=== PATIENT | female | born 1975 | race Caucasian/White ===

== ENCOUNTER 2016-05-30 19:16 | Emergency (ER) | payer MEDICARE ==
[~2016-05-30] VITALS: Ht 170.1 cm; Wt 96.6 kg
[~2016-05-30 19:16] MED LIST: AMARYL2 MG PO; AMITIZA24 MCG PO; ATARAX,VISTARIL50 MG PO; CARBIDOPA/LEVOD1 TA1 PO; CARVEDILOL25 MG PO; CLONIDINE0.3 MG PO; CYCLOBENZAPRINE10 MG PO; CYCLOBENZAPRINE5 M3 PO; CYMBALTA60 MG PO; DOXYCYCLINE MO100 M1 PO; HYDRALAZINE10 MG PO; HYDROCHLOROTHIA25 M1 PO; INDOMETHACIN25 M1 PO; KEFLEX 500 MG E2 CAP PO; LIPITOR40 MG PO; LISINOPRIL20 MG PO; MAPAP325 MG PO; METHOCARBAMOL750 M1 PO; NEURONTIN300 MG PO; NEURONTIN800 MG PO; OXYCODONE AND A1 TA4 PO; PRILOSEC20 M1 PO; PROPRANOLOL ER80 MG PO; QUETIAPINE FUMA50 M1 PO; TRAZODONE100 MG PO; VENTOLIN H0.09 MG/AC INH; ZOFRAN 4 MG ED2 TAB PO
[2016-05-30 20:24] LABS: BILIRUBIN NEGATIVE (NEGATIVE); BLOOD 3+ (NEGATIVE); CLARITY CLOUDY (CLEAR); COLOR YELLOW (YELLOW); GLUCOSE 1+ (NEGATIVE); KETONE NEGATIVE (NEGATIVE); LEUKO ESTERASE 2+ (NEGATIVE); NITRITE POSITIVE (NEGATIVE); PROTEIN 2+ (NEGATIVE); SPECIFIC GRAVITY 1.025 (1.005-1.030); UROBILINOGEN 0.2 E.U./dl (0.2-1.0)
[2016-05-30 20:33] LABS: BASO # 0.1 10*3/uL (0.0-0.1); BASO % 0.6 % (0.0-1.0); EOS # 0.3 10*3/uL (0.0-0.4); EOS % 2.5 % (1.0-4.0); HEMATOCRIT 47.1 % (37.0-47.0); LYMPH # 2.4 10*3/uL (1.3-4.4); MEAN CELL VOLUME 84.9 fl (81.0-99.0); MEAN CORPUSCULAR HGB 28.8 pg (27.0-31.0); MEAN PLATELET VOLUME 9.8 fl (9.6-12.3); MONO # 0.7 10*3/uL (0.1-1.0); MONO % 5.4 % (3.0-9.0); NEUT # 9.2 10*3/uL (2.3-7.9); NEUT % 72.3 % (47.0-73.0); PLATELET COUNT AUTOMATED 335 10*3/uL (130-400); RED BLOOD COUNT 5.55 10*6/uL (4.10-5.10); RED CELL DISTRI WIDTH 13.7 % (0-14.5); WHITE BLOOD COUNT 12.7 10*3/uL (4.8-10.8)
[2016-05-30 20:34] LABS: BACTERIA 4+; RBC TNTC rbc/hpf (0-2); URINE REFLEX COMMENT YES (NO); WBC TNTC wbc/hpf (0-5)
[2016-05-30 20:49] LABS: ALBUMIN 3.9 gm/dl (3.1-4.5); ALKALINE PHOSPHATASE 118 U/L (45-117); BILIRUBIN, TOTAL 0.5 mg/dl (0.2-1.0); BUN 9 mg/dl (7-24); CARBON DIOXIDE 24 mmol/L (21-32); CHLORIDE 105 mmol/L (98-107); EST GLOM FILT AFRICAN AMERICAN > 60 ml/min; GLUCOSE 236 mg/dL (65-99); SGOT/AST 38 IU/L (3-35); SGPT/ALT 73 U/L (12-78); SODIUM 142 mmol/L (136-145); TOTAL PROTEIN 8.1 gm/dL (6.4-8.2)
[2016-05-30] MEDS ORDERED: PYRIDIUM200 M1 PO (22:33)
[2016-05-30] MEDS ORDERED: KEFLEX500 M1 PO (22:33)
[2016-05-31] MEDS ORDERED: KEFLEX500 M1 PO (12:08)
[2016-05-31] MEDS ORDERED: PYRIDIUM200 M1 PO (12:08)
== END 2016-05-30 23:11 | disposition home or self-care (01) ==
LOC: ED 19:16
PROVIDERS: Emergency Medicine
DX: N39.0 Urinary tract infection, site not specified (principal); R31.9 Hematuria, unspecified; F32.9 Major depressive disorder, single episode, unspecified; I10 Essential (primary) hypertension; M79.7 Fibromyalgia; K21.9 Gastro-esophageal reflux disease without esophagitis; K58.9 Irritable bowel syndrome, unspecified; M06.9 Rheumatoid arthritis, unspecified; E11.65 Type 2 diabetes mellitus with hyperglycemia; F17.200 Nicotine dependence, unspecified, uncomplicated; Z98.890 Other specified postprocedural states; Z90.710 Acquired absence of both cervix and uterus; Z96.641 Presence of right artificial hip joint; Z90.49 Acquired absence of other specified parts of digestive tract; Z79.899 Other long term (current) drug therapy; Z88.5 Allergy status to narcotic agent; Z87.442 Personal history of urinary calculi

== ENCOUNTER → 2016-10-15 | Outpatient (CLI) | payer MEDICARE, MEDICAID ==
[~2016-10-15] MED LIST changes: +KEFLEX500 M1 PO; +PYRIDIUM200 M1 PO
--- NOTE | ~2016-10-15 | WRIGHTHP ---
[place], [place] PATIENT HISTORY AND PHYSICAL EXAM NAME: JULIAN JACOBSON [facility] #: [id number] UNIT #: [id number] ROOM: DOCTOR: SHADY CarpenterMARTINA BIRTHDATE: [birth year] DOS: 10/15/2016 CHIEF COMPLAINT: Open wound of the left hand and left forearm. HISTORY OF PRESENT ILLNESS: This is a 40-year-old female with a history of type 2 diabetes, which is uncontrolled, according to medical records and per patient report, who apparently was admitted to [facility] for an abscess and cellulitis of the left hand as well as the forearm. Medical charts indicate that she had suffered a dog bite from a puppy. However, the patient reports that she was not bitten by the dog and that she was playing with the dog and the dog may have scratched her a little bit and then she subsequently developed an abscess of the left hand as well as the left forearm. In any case, the patient was admitted for this, and she was seen by Surgery and underwent operative incision and drainage on 10/02/2016. She also underwent incision and drainage on the left forearm on the ulnar side. She was sent home, discharged eventually, after treatment. It looks like she grew Staph from the cultures and was prescribed Keflex. She has been having home health coming to doing the dressing changes, looks like they have been using Xeroform, but has not really been healing as she would like it to. Home health has referred her to our [facility]ound [facility]. The patient wishes to not follow up with the surgeon who had seen her in the hospital. PAST MEDICAL HISTORY: She has had multiple abscesses noted and according to the medical record, the surgeon who had drained the abscess this past September had seen her and had done multiple drainages before one back in 03/2015 for an abscess of the left hand, one in 04/10/2016, she had another I and D for deep abscess of the left hand. She had also an abscess drained of the right hand as well. The patient reports that she has had a history of multiple abscesses in the past. She reports that she got an abscess of her ear at one point after she got the ear pierced and had a large severe abscess of the ear that was quite extensive requiring surgery. She has had multiple abscesses of her legs. She really reports that they do not appear to be provoked by anything according to the patient. 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 Her diabetes is uncontrolled. She says she was being given insulin in the hospital, but now it is just on oral agents. She has a history of hypertension, degenerative joint disease, osteoarthritis of multiple sites, bronchial asthma, GERD, recurrent skin infections and cellulitis, quite severe. She says she has always been given vancomycin when she was admitted, but at this time, she was not. She also has chronic abdominal discomfort and irritable bowel syndrome according to the patient. PAST SURGICAL HISTORY: She is status post appendectomy, cholecystectomy. FAMILY HISTORY: Significant for cardiac disease in the father. Mother is healthy, brother is healthy, sister is healthy. SOCIAL HISTORY: She smokes 2 packs per day for many years, currently, no alcohol or drug use presently. She drinks 3 cups of coffee a day. There is a history of a TIA as well in the past. [place], [place] PATIENT HISTORY AND PHYSICAL EXAM [facility]: [id number] UNIT #: [id number] ROOM: DOCTOR: MARTINA CARUSO M.D. BIRTHDATE: [birth year] PAST MEDICAL HISTORY: Anxiety, insomnia, history of bronchitis. She is status post right hip replacement as well and hysterectomy. ALLERGIES: MORPHINE. MEDICATIONS: Albuterol 2 puffs 4 times a day, gabapentin 300 mg capsules 3 capsules at bedtime, Glimepiride 2 mg b.i.d., atorvastatin 40 at bedtime, lisinopril 20 p.o. daily, clonidine patch 0.2 mg q.24 hours, weekly, twice a day, hydralazine 50 mg 3 times a day, Amitiza 24 mcg capsules twice a day, furosemide 40 mg daily, ibuprofen 800 q.6 hours as needed, omeprazole 20 mg daily, zolpidem 10 mg p.o. at bedtime, duloxetine 60 mg twice a day, cyclobenzaprine 10 mg at bedtime and cyclobenzaprine 5 mg b.i.d., cephalexin 500 four times a day. She has just a few pills left. REVIEW OF SYSTEMS: Currently, no fevers or chills. She still has pain and discomfort. There is drainage and still some redness. Her neighbor has left her and says that she thinks that the area in the forearm looks more red than it did before. She denies any breathing trouble, chest pains, or GI complaints presently, but does state she has chronic abdominal discomfort from irritable bowel syndrome. When I asked specifically about her sugars, it has been running very high in the 200-250 range, and she says it really has not gotten any better and has been like that for some time now. She reports that she has never really been worked up for any type of immunodeficiency that she is aware of. PHYSICAL EXAMINATION: VITAL SIGNS: He is afebrile, pulse is 64, respirations 18, blood pressure is 130/82, temperature is actually 98.4. GENERAL: This is a young female, slightly obese, in no acute distress, who is pleasant and cooperative. HEENT: Extraocular movements are intact. Sclerae nonicteric. I do not appreciate any JVD. LUNGS: She had rhonchi that cleared with cough, otherwise has good inspiratory and expiratory phase. CARDIOVASCULAR: S1, S2, regular rate and rhythm. I do not appreciate a murmur. ABDOMEN: Obese and soft. She does complain of some mild discomfort upon palpation and she says this is chronic and nothing unusual. EXTREMITIES: She has trace edema bilaterally and there is no calf tenderness. She has two open area noted on the left hand dorsum aspect right between the webspace of the thumb and first pointer finger. It is measuring 3.5 x 1 x 0.5. There is a moderate fibrin slough still present. The periwound is indurated and mildly erythematous and fractionating still operator to touch. The forearm wound is measuring 1.9 x 1 x 0.3 in depth. There is surrounding erythema, warmth and tenderness still present and it is indurated as well. A selective debridement was done of both of these wounds to remove some of the devitalized tissue. Only a small amount of fibrin slough was removed from both of these wounds with a curette. Cetacaine spray was used for topical anesthesia. Post-debridement measurements are unchanged. The patient did not tolerate debridement very well due to pain. A swab culture was obtained of the open wound of the left hand. [place], [place] PATIENT HISTORY AND PHYSICAL EXAM NAME: [facility] [id number] UNIT #: [id number] ROOM: DOCTOR: SHADY Carpenter,MARTINA BIRTHDATE: [birth year] ASSESSMENT AND PLAN: Large open wounds of the left hand and left forearm secondary to an abscess formation. We will go ahead and use TheraHoney to help with debridement and Aquacel Ag rope to the wound base. I would like to have her change it every day for now. I would like to add Bactrim to the regimen one tablet twice a day. The patient says she has been on Bactrim before and has never had a problem with that. She has uncontrolled diabetes. She does not know what her hemoglobin A1c is. I will go ahead and order this, and I strongly urged the patient to follow up with her primary care physician. She definitely needs better management of her diabetes. The wound is quite deep and on the left hand areas, I would like to go ahead and check an x-ray to see if there has been any bony involvement. In addition, the patient does not appear septic in any way. She does complain of feeling tired. I did inform if she spikes a fever or the wound worsens, she is to go to the Emergency Room. There is some indication on medical records that the patient has had a history of IV drug abuse and that some of these previous abscesses may have been secondary to IV drugs. However, the patient does not report this at this time and she has had multiple abscesses and the etiology is unclear. She does not recall a history of MRSA that she is aware of. It is my recommendation that she follow up with her primary care physician to be evaluated for possible immunodeficiency or an Infectious Disease specialist at some point may be also helpful for her. We will discuss this again at her next visit. Followup is in one week. MARTINA CARUSO MD CM:HISPHYS:PATIENT HISTORY AND PHYSICAL EXAMINATION [id number] MARTINA CARUSO M.D. 10/15/16 1344 interface
== END ==
LOC: WOUNDCARE 03:05
DX: L02.512 Cutaneous abscess of left hand (principal); L02.414 Cutaneous abscess of left upper limb; E11.9 Type 2 diabetes mellitus without complications; I10 Essential (primary) hypertension; M19.90 Unspecified osteoarthritis, unspecified site; K21.9 Gastro-esophageal reflux disease without esophagitis; J45.909 Unspecified asthma, uncomplicated; F17.200 Nicotine dependence, unspecified, uncomplicated; F41.9 Anxiety disorder, unspecified; Z90.710 Acquired absence of both cervix and uterus; Z86.73 Personal history of transient ischemic attack (TIA), and cerebral infarction without residual deficits

== ENCOUNTER → 2016-10-27 | Outpatient (CLI) | payer MEDICARE, MEDICAID ==
--- NOTE | ~2016-10-27 | PR ---
[place], [place] PROGRESS NOTE NAME: JULIAN JACOBSON [facility] #: [id number] UNIT #: [id number] ROOM: DOCTOR: SHADY CarpenterMARTINA BIRTHDATE: [birth year] DOS: 10/27/2016 CHIEF COMPLAINT: Followup of open wounds of the left hand. HISTORY OF PRESENT ILLNESS: This is a 40-year-old female with a history of type 2 diabetes that is uncontrolled, who has been seen in the wound clinic on one occasion. She missed her last week's appointment. She had an abscesses drained from her left forearm and left hand that left her with open deep wounds. The etiology of these abscesses are unclear. In any case, the patient was recommended to use Aquacel Ag and TheraHoney to the wounds. She says that overall it definitely the wounds are getting better, especially one on the left forearm. She still has some inflammation around the left hand ulcer that present, she never did get the x-ray or a blood work that we had recommended. Also, there are new areas of what appeared to be developing abscess was starting up again on the left forearm and more proximal to the initial wound as well as the third finger on the right hand, there developing. She does not have any fevers or chills. She just completed the Bactrim that was given to her last week. She does have an appointment with her primary care physician later this month. OBJECTIVE: VITAL SIGNS: Her vitals are stable. Temperature is 98.6, pulse is 86, respirations 18, blood pressure is 132/80. The wound on the left hand dorsum is measuring smaller at 3 x 0.5 x 0.3. There is still some marked induration around the periwound and some erythema as well and tenderness to touch, but overall definitely looks smaller and shallower than before. There is still some fibrin slough and devitalized tissue in the base of the wound. The second wound is definitely measuring smaller at 1.2 x 0.5 x 0.2 and there is just some devitalized tissue around the periwound. It is not really tender to touch and it looks like it has granulated quite a bit. A debridement was done of both of these wounds. Initially, the hand wound was debrided. There is subcutaneous tissue with curette. There was minimal bleeding. The patient tolerated the debridement well. Cetacaine spray was used for topical anesthesia. Post-debridement depth is down to 0.4, otherwise the margins have unchanged. For the forearm wound, selective debridement was done only. The tissue removed was just devitalized tissue only. There was no bleeding. The patient tolerated the debridement well. Post-debridement measurements are unchanged. Curette was utilized. She has two other areas are indurated and erythematous on the forearm. They are not fluctuant at all. There are very firm and slightly tender. She has another area on the right finger that also noted to be starting that is also erythematous and not acutely fluctuant and not acutely tender, but is swollen and erythematous. She says she has had these before that sometimes they just go with antibiotics and sometimes they develop into full blown abscess. ASSESSMENT AND PLAN: Status post incision and drainage of 2 wounds. She still has a fairly large wound on the left hand. We will go ahead and get the x-ray done and continue with the current management. It is still indurated and there is evidence of newly developing areas of concern. I would go ahead and add Levaquin 500 daily for now until seen again in a week for now. She will have an [place], [place] PROGRESS NOTE [facility]: [id number] UNIT #: [id number] ROOM: DOCTOR: MARTINA CARUSO M.D. BIRTHDATE: [birth year] appointment with her primary care physician. I did directly ask if she has injected recently into these areas and she denies it adamantly; she states she has not injected for the past 6 months. We will go ahead and refer her to Dr. Esparza for possible incision and drainage of these areas. At this point, they do not appear need acute drainage, however. We did advise to go ahead and use warm compresses and if they worsen she is to go to the ER. Also it may be beneficial to consider referral to an plastic parts fabricator trimmer and/or an Infectious Disease specialist as well. Follow up in the wound clinic in 1 week. MARTINA CARUSO MD CM:PNTRANS [id number] MARTINA CARUSO M.D. 10/30/16 0944 interface
== END | disposition home or self-care (01) ==
LOC: WOUNDCARE 04:50
DX: E11.622 Type 2 diabetes mellitus with other skin ulcer (principal); L98.491 Non-pressure chronic ulcer of skin of other sites limited to breakdown of skin; L02.414 Cutaneous abscess of left upper limb

== ENCOUNTER → 2016-11-17 | Outpatient (CLI) | payer MEDICARE, MEDICAID ==
--- NOTE | ~2016-11-17 | PR ---
[place], [place] PROGRESS NOTE NAME: JULIAN JACOBSON [facility] #: [id number] UNIT #: [id number] ROOM: DOCTOR: SHADY CarpenterMARTINA BIRTHDATE: [birth year] DOS: 11/17/2016 CHIEF COMPLAINT: Followup of open wounds of the left hand. HPI: This is a 41-year-old female with a history of uncontrolled type 2 diabetes, who has been coming to the Wound Clinic for 4 weeks now. She had a very large abscess of her left hand and left forearm that were drained surgically and she has been coming to the Wound Clinic for further wound care. She has missed 2 weeks of appointments in a row most recently and last time we had seen her, we had recommended to get an x-ray of the hand; however, that I do not believe she has had that done either. She comes in today without any specific complaints. She really does not have any pain right now. The wounds are definitely filling in for the most part quite nicely. She is still using TheraHoney and Aquacel Ag ribbon. She says her sugars are still quite high running in the 300 hundreds regularly. She has no other specific complaints. OBJECTIVE: VITAL SIGNS: Stable. Temperature is 98.1, pulse is 80, respirations 18, blood pressure is 126/60. SKIN: The wound is measuring 2 x 0.5 x 0.2 in depth. This is on the dorsum of the left hand and there is some fibrin slough still present in the base of the wound. The wound on the forearm is measuring 1.1 x 0.4 x 0.1 and it looks to be healing quite nicely. Due to the fibrin slough present in the hand wound, a debridement was done. Fibrin slough was removed with a curette, forceps, and scissors. The patient tolerated the procedure well. There was minimal bleeding. Cetacaine spray was used for topical anesthesia. Post-debridement measurements are 2 x 0.5 x 0.3. ASSESSMENT AND PLAN: Healing abscess of the left hand. We will continue with TheraHoney and the Aquacel Ag now for the forearm area. It looks to be almost healed. We will just have her use Aquaphor for this area. Followup is in one week. I did explain how important it is to get her diabetes at her control and she says her PCP is out of town until December, but I did advise her to make sure she checks her sugars and reports to her PCP's office, her readings. [place], [place] PROGRESS NOTE NAME: KAVONJULIAN Pushpa UNIT #: [id number] ROOM: DOCTOR: MARTINA CARUSO M.D. BIRTHDATE: [birth year] MARTINA CARUSO MD CM:NEGRA [id number] 2 MARTINA CARUSO M.D. 11/18/16512 interface
== END | disposition home or self-care (01) ==
LOC: WOUNDCARE 03:14
DX: L02.512 Cutaneous abscess of left hand (principal); E11.9 Type 2 diabetes mellitus without complications

== ENCOUNTER 2016-12-15 21:03 | Inpatient (IN) | payer MEDICARE, MEDICAID ==
[~2016-12-15] VITALS: Ht 170.2 cm; Wt 104.0 kg
[2016-12-15 21:22] VITALS: BP 141/98
[2016-12-15 22:08] LABS: BILIRUBIN NEGATIVE (NEGATIVE); BLOOD 2+ (NEGATIVE); CLARITY CLEAR (CLEAR); COLOR YELLOW (YELLOW); GLUCOSE 3+ (NEGATIVE); KETONE TRACE (NEGATIVE); LEUKO ESTERASE NEGATIVE (NEGATIVE); NITRITE NEGATIVE (NEGATIVE); UROBILINOGEN 0.2 E.U./dl (0.2-1.0)
[2016-12-15 22:17] LABS: RBC 31-40 rbc/hpf (0-2)
[2016-12-15 22:18] LABS: URINE AMPHETAMINES < 1000 (1000ng/ml); URINE BARBITURATES < 200 (200ng/ml); URINE BENZODIAZEPINES < 200 (200ng/ml); URINE CANNABINOIDS (THC) < 50 (50ng/ml); URINE COCAINE < 300 (300ng/ml); URINE METHADONE < 300 (300ng/ml); URINE OPIATES > 300 (300ng/ml)
[2016-12-15 22:19] LABS: BASO % 0.3 % (0.0-1.0); EOS # 0.2 10*3/uL (0.0-0.4); EOS % 1.5 % (1.0-4.0); HEMATOCRIT 40.7 % (37.0-47.0); HEMOGLOBIN 13.3 g/dl (12.0-16.0); LYMPH # 2.1 10*3/uL (1.3-4.4); LYMPH % 17.9 % (27.0-41.0); MEAN CELL VOLUME 82.2 fl (81.0-99.0); MEAN CORPUSCULAR HGB 26.9 pg (27.0-31.0); MEAN CORPUSCULAR HGB CONC 32.7 g/dl (33.0-37.0); MEAN PLATELET VOLUME 9.9 fl (9.6-12.3); MONO # 0.6 10*3/uL (0.1-1.0); NEUT # 8.9 10*3/uL (2.3-7.9); PLATELET COUNT AUTOMATED 249 10*3/uL (130-400); RED BLOOD COUNT 4.95 10*6/uL (4.10-5.10); RED CELL DISTRI WIDTH 14.5 % (0-14.5); WHITE BLOOD COUNT 11.9 10*3/uL (4.8-10.8)
[2016-12-15 22:22] LABS: URINE PHENCYCLIDINE < 25 (25ng/ml)
--- NOTE | 2016-12-15 22:25 | NUR ---
DR MOREIRA MADE AWARE OF CRITICAL LAB VALUE
[2016-12-15 22:36] LABS: ALBUMIN 3.3 gm/dl (3.1-4.5); ALKALINE PHOSPHATASE 160 U/L (45-117); BUN 9 mg/dl (7-24); CHLORIDE 98 mmol/L (98-107); CREATININE 0.81 mg/dL (0.55-1.02); POTASSIUM 3.6 mmol/L (3.5-5.1); SGOT/AST 28 IU/L (3-35); SGPT/ALT 64 U/L (12-78); SODIUM 135 mmol/L (136-145); TOTAL PROTEIN 8.2 gm/dL (6.4-8.2)
[2016-12-15 22:49] LABS: TROPONIN I < 0.015 ng/ml (<0.045)
--- NOTE | 2016-12-15 23:50 | NUR ---
Time: 2349 A 41 year old F admitted to under services of FADUMO JOHNSON DO Pt. arrived via stretcher from ER. Chief complaint: CELLULITIS. SURESH TAYLOR
[2016-12-16] VITALS: BP 141/79
--- NOTE | 2016-12-16 00:45 | NUR ---
SPOKE WITH DR. LEMA ABOUT PT. MED. REC. HE WILL ADRESS THIS IN THE AM.
--- NOTE | 2016-12-16 00:59 | NUR ---
PRN TORADOL GIVEN TO PT. FOR PAIN IN THE RIGHT HAND, PT. RATES PAIN A 10/10. WILL MONITOR FOR EFFECTIVENESS.
--- NOTE | 2016-12-16 01:30 | NUR ---
PRN TORODOL NOT EFFECTIVE PER PT. STILL RATING RT. HAND PAIN A 10/10.
--- NOTE | 2016-12-16 02:58 | NUR ---
CONTACTED AT THIS TIME FOR PAIN MEDICATION, SEE NEW ORDERS.
--- NOTE | 2016-12-16 03:23 | NUR ---
PRN DILAUDID GIVEN PER ORDERS FOR PAIN IN PT.'S RT. HAND RATING A 10/10. WILL CONTINUE TO MONITOR.
--- NOTE | 2016-12-16 03:24 | NUR ---
PRN RESTORIL GIVEN PER PT. REQUEST TO TRY AND GET SOME SLEEP. WILL MONITOR EFFECTS.
--- NOTE | 2016-12-16 03:43 | NUR ---
PRN DILAUDID EFFECTIVE, PT. RESTIN GCOMFORTABLY RESPIRATIONS ARE EASY AND REGULAR WITH NO DISTRESS NOTED. WILL CONTINUE TO MONITOR.
--- NOTE | 2016-12-16 03:54 | NUR ---
PRN RESTORIL NOT EFFECTIVE, PT. STILL AWAKE C/O HAND PAIN.
--- NOTE | 2016-12-16 05:43 | NUR ---
PRN TYLENOL GIVEN TO PT. FOR PAIN IN RT. HAND, WILL MONITOR EFFECT.
--- NOTE | 2016-12-16 06:10 | NUR ---
PRN TYLENOL NOT EFFECTIVE PER PT.
--- NOTE | 2016-12-16 06:30 | NUR ---
DR. JASON CONTACTED FOR CONSULT, INFORMED THAT DR. HARDWICK WAS HOME HEALTH CARE COORDINATOR. WILL CONTACT DR. HARDWICK
--- NOTE | 2016-12-16 07:00 | NUR ---
DR. HARDWICK CONTACTED FOR CONSULT FOR PT. HAVING CELLULITIS IN RT. HAND, DR. HARDWICK INFORMED ME THAT HE WAS CONTACTED BY ER LAST NIGHT AND WILL BE IN TO SEE PT. THIS AM.
--- NOTE | 2016-12-16 07:04 | NUR ---
PRN TORADOL GIVEN AT THIS TIME FOR PAIN IN PT'S RT. HAND. WILL MONITOR EFFECTIVENESS.
[2016-12-16 07:22] LABS: BASO % 0.3 % (0.0-1.0); EOS # 0.2 10*3/uL (0.0-0.4); EOS % 2.1 % (1.0-4.0); HEMATOCRIT 40.3 % (37.0-47.0); HEMOGLOBIN 13.2 g/dl (12.0-16.0); LYMPH # 2.3 10*3/uL (1.3-4.4); LYMPH % 19.7 % (27.0-41.0); MEAN CORPUSCULAR HGB 27.5 pg (27.0-31.0); MEAN CORPUSCULAR HGB CONC 32.8 g/dl (33.0-37.0); MEAN PLATELET VOLUME 10.1 fl (9.6-12.3); MONO # 0.7 10*3/uL (0.1-1.0); NEUT # 8.3 10*3/uL (2.3-7.9); NEUT % 71.6 % (47.0-73.0); PLATELET COUNT AUTOMATED 248 10*3/uL (130-400); RED CELL DISTRI WIDTH 14.6 % (0-14.5); WHITE BLOOD COUNT 11.5 10*3/uL (4.8-10.8)
[2016-12-16 07:50] LABS: BUN 10 mg/dl (7-24); CHLORIDE 102 mmol/L (98-107); CHOLESTEROL 131 mg/dL (<200); CREATININE 0.79 mg/dL (0.55-1.02); HDL CHOLESTEROL 30 mg/dl (40-60); LDL CHOLESTEROL 61 mg/dL (9-159); POTASSIUM 3.8 mmol/L (3.5-5.1); SODIUM 137 mmol/L (136-145); TRIGLYCERIDES 202 mg/dl (<150); VLDL CHOLESTEROL 40 mg/dL (6-40)
[2016-12-16 07:57] LABS: THYROID STIM HORMONE (HS) 0.926 uIU/ml (0.358-4.75)
[2016-12-16 08:00] VITALS: BP 115/53
[2016-12-16 08:00] LABS: ACT PARTIAL THROMBO TIME 24.7 SECONDS (20.8-31.5)
--- NOTE | 2016-12-16 08:00 | NUR ---
PATIENT SITTING SIDE OF BED CRYING. WANTING SOMETHING FOR LPAIN. PATIENT STATES SHE HAS NOT SLEPT IN 2 DAYS AND CANNOT GET COMFORTABLE. EDUCATED JUST MEDICATED AND NOT TIME FOR TORODOL YET.
--- NOTE | 2016-12-16 08:30 | NUR ---
Dough Molder in to talk to patient. Patient states lives at HOME with A ROOMMATE. There are 10 steps in the home. Physician: DR DEL ROSARIO IN [place] Pharmacy: [facility] IN [place] Home health services: Patient's level of ADLs: INDEPENDENT Patient has working utilities: YES DME: NONE Follow-up physician's appointment after d/c: WILL BE MADE PRIOR TO DC Does patient want to access PORTAL?: Discharge plan HOME. PRIYANK BRANNON
--- NOTE | 2016-12-16 09:20 | NUR ---
RESPIRATORY SAW PATIENTSWAYING ON SIDE OF BED AFTER EXITING BATHROOM. POX CHECK WAS 90-91% RA, PLACED ON 2L NC POX 96%. PATIENT JUST STATES SHE WAS SWAYING BECAUSE SHE IS EXHAUSTED AND NOT SLEEPING. ASSISTED PATIENT TO LIE DOWN.
[2016-12-16 09:28] LABS: VITAMIN D, 25-HYDROXY 8.1 ng/mL (30-100)
[2016-12-16] MEDS ORDERED: AMITIZA24 MCG PO (10:24)
[2016-12-16] MEDS ORDERED: MAGNESIUM OXID400 MG PO (10:25)
[2016-12-16] MEDS ORDERED: LASIX40 MG PO (10:26)
--- NOTE | 2016-12-16 11:04 | NUR ---
MEDICATED WITH ONE TIME DILAUDID PER ORDER.
[2016-12-16 12:00] VITALS: BP 152/113
--- NOTE | 2016-12-16 12:15 | NUR ---
MEDICATED WITH PRN PERCOCET PER ORDER, DILAUDID HELPED A LITTLE.
--- NOTE | 2016-12-16 13:17 | NUR ---
PATIENT MOANING/CRYING KEEPS ASKING FOR RN. PATIENT REFUSING ICE PACK OR ELEVATION STATES IT MAKES IT WORSE. PERCOCET DID NOT HELP.
--- NOTE | 2016-12-16 14:00 | NUR ---
TO MRI AND BACK BECAUSE PATIENT UNABLE TO HOLD STILL AND IN TOO MUCH PAIN.
--- NOTE | 2016-12-16 14:28 | NUR ---
MEDICATED WITH TORODOL AND DILAUDID PER ORDERS.
--- NOTE | 2016-12-16 14:40 | NUR ---
BACK TO MRI. PATIENT HAS REPAEATEDLY ASKED FOR PAIN MED DR. LUNSFORD CALLED MULTIPLE TIMES. PAIN MEDS HAVE BEEN GIVEN.
[2016-12-16 16:00] VITALS: BP 157/94
[2016-12-16] MEDS ORDERED: HYDRALAZINE HYD50 MG PO (16:44)
--- NOTE | 2016-12-16 17:28 | NUR ---
PATIENT HAS HAD MRI AND IS IN ROOM NOW VERBALLY ABUSING STAFF STATES I ACT LIKE THE PAIN MED IS COMING OUT OF MY FUCKING POCKET." EDUCATED CANNOT GIVE WHAT IS NOT ORDERED. SCREAMING CALL THE DOCTOR. DR. HILL NOTIFIED.
--- NOTE | 2016-12-16 17:47 | NUR ---
MEDICATED WITH PRN TYLENOL PER ORDER. PATIENT HAS NOT STOPPED CRYING ALL DAY.
--- NOTE | 2016-12-16 18:10 | NUR ---
MEDICATED WITH PRN PERCOCET PER ORDER AND REQUEST FOR R HAND PAIN 10 OUT OF 10 PAIN.
--- NOTE | 2016-12-16 18:35 | NUR ---
CRITICAL MRI CALLED TO THIS RN, DR. RODRIGUEZ AWARE WILL CALL DR. HARDWICK.
--- NOTE | 2016-12-16 18:39 | NUR ---
DR. HARDWICK AWARE OF RESULTS MRI, TALKING PLAN OF CARE OVER WITH DR. RODRIGUEZ.
--- NOTE | 2016-12-16 18:44 | NUR ---
PATIENT TO BE TRANSFERED TO ANOTHER FACILITY. DR. HILL AWARE OF ANOTHER REQUEST FOR PAIN MEDICATION.
--- NOTE | 2016-12-16 18:53 | NUR ---
DR. RODRIGUEZ IN ROOM, DR. HARDWICK CALLED IN TO START TRANSFER.
--- NOTE | 2016-12-16 19:07 | NUR ---
MEDICATED WIT NDILAUDID PER ORDER.
[2016-12-16] MEDS ORDERED: Vitamin D PO (19:17)
[2016-12-16 20:00] VITALS: BP 146/82
--- NOTE | 2016-12-16 23:25 | NUR ---
PT LEFT VIA LIFETEAM AT THIS TIME. HEART MONITOR REMOVED
--- NOTE | 2016-12-16 23:35 | NUR ---
REPORT GIVEN AT THIS TIME TO NURSE AT [facility]
== END 2016-12-16 23:25 | disposition short-term general hospital (02) | DRG 872 ==
LOC: ED 21:03 → EDHOLD 23:03 → 4E 23:03
PROVIDERS: Emergency Medicine Emergency Medical Services; Internal Medicine; ADMIT Internal Medicine
DX: A41.9 Sepsis, unspecified organism (principal); E11.42 Type 2 diabetes mellitus with diabetic polyneuropathy; M60.000 Infective myositis, unspecified right arm; E11.65 Type 2 diabetes mellitus with hyperglycemia; L02.91 Cutaneous abscess, unspecified; L03.113 Cellulitis of right upper limb; I10 Essential (primary) hypertension; R65.20 Severe sepsis without septic shock; F11.10 Opioid abuse, uncomplicated; F17.210 Nicotine dependence, cigarettes, uncomplicated; E55.9 Vitamin D deficiency, unspecified; E78.1 Pure hyperglyceridemia; G56.00 Carpal tunnel syndrome, unspecified upper limb; M65.9 Synovitis and tenosynovitis, unspecified; Z88.6 Allergy status to analgesic agent; Z79.899 Other long term (current) drug therapy; F32.9 Major depressive disorder, single episode, unspecified; K21.9 Gastro-esophageal reflux disease without esophagitis; Z86.19 Personal history of other infectious and parasitic diseases; Z87.440 Personal history of urinary (tract) infections; Z90.49 Acquired absence of other specified parts of digestive tract; Z90.710 Acquired absence of both cervix and uterus; Z96.641 Presence of right artificial hip joint; Z83.3 Family history of diabetes mellitus; Z84.89 Family history of other specified conditions

== ENCOUNTER 2017-06-18 23:12 | Emergency (ER) | payer MEDICARE, MEDICAID ==
[~2017-06-18] VITALS: Ht 170.1 cm; Wt 99.8 kg
[~2017-06-18 23:12] MED LIST changes: +HYDRALAZINE HYD50 MG PO; +LASIX40 MG PO; +MAGNESIUM OXID400 MG PO; +Vitamin D PO
[2017-06-18] MEDS ORDERED: SEPTDS PO (23:46)
== END 2017-06-18 23:52 | disposition home or self-care (01) ==
LOC: ED 23:12
DX: L03.114 Cellulitis of left upper limb (principal); K21.9 Gastro-esophageal reflux disease without esophagitis; E11.65 Type 2 diabetes mellitus with hyperglycemia; I10 Essential (primary) hypertension; Z88.5 Allergy status to narcotic agent; Z90.710 Acquired absence of both cervix and uterus; Z90.49 Acquired absence of other specified parts of digestive tract

== ENCOUNTER 2020-07-03 05:09 | Emergency (ER) | payer OTHER, MEDICAID ==
[~2020-07-03] VITALS: Ht 170.1 cm; Wt 96.6 kg
[~2020-07-03 05:09] MED LIST changes: +AMLODIPINE BESYL5 MG PO; +BUSPAR15 MG PO; +DICYCLOMINE HCL20 MG PO; +JANUMET XR 50-1 EAC1 PO; -LISINOPRIL20 MG PO; +LISINOPRIL40 MG PO; +NATURE'S BLEND F1 MG PO; +NATURE'S BLEND100 M2 PO; +ROPINIROLE HYD0.5 MG PO; +SEPTDS PO; +SEROQUEL XR150 MG PO; +TRESIBA100 UNIT/1 SQ
== END 2020-07-03 05:34 | disposition left against medical advice (07) ==
LOC: ED 05:09
DX: F11.23 Opioid dependence with withdrawal (principal); G44.89 Other headache syndrome; R11.0 Nausea; Z88.5 Allergy status to narcotic agent; Z79.899 Other long term (current) drug therapy; Z79.4 Long term (current) use of insulin; Z98.890 Other specified postprocedural states; Z90.711 Acquired absence of uterus with remaining cervical stump; Z90.49 Acquired absence of other specified parts of digestive tract

== ENCOUNTER 2020-08-23 12:15 | Inpatient (IN) | payer OTHER, MEDICAID ==
[~2020-08-23] VITALS: Ht 170.2 cm; Wt 96.6 kg
[2020-08-23 13:00] VITALS: BP 190/89
[2020-08-23 13:28] LABS: BASO % 0.4 % (0.0-1.0); HEMATOCRIT 43.8 % (37.0-47.0); LYMPH % 10.7 % (27.0-41.0); MEAN CELL VOLUME 79.6 fl (81.0-99.0); MEAN CORPUSCULAR HGB 27.3 pg (27.0-31.0); MEAN CORPUSCULAR HGB CONC 34.2 g/dl (33.0-37.0); MEAN PLATELET VOLUME 9.2 fl (9.6-12.3); MONO # 0.2 10*3/uL (0.1-1.0); MONO % 1.8 % (3.0-9.0); NEUT # 8.4 10*3/uL (2.3-7.9); NEUT % 86.5 % (47.0-73.0); PLATELET COUNT AUTOMATED 245 10*3/uL (130-400); WHITE BLOOD COUNT 9.7 10*3/uL (4.8-10.8)
[2020-08-23 13:44] LABS: ALBUMIN 3.7 gm/dl (3.1-4.5); ALKALINE PHOSPHATASE 92 U/L (45-117); BUN 14 mg/dl (7-24); CHLORIDE 106 mmol/L (98-107); CREATININE 1.16 mg/dL (0.55-1.02); ETHYL ALCOHOL < 3.0 mg/dl (<3); POTASSIUM 3.8 mmol/L (3.5-5.1); SGOT/AST 14 IU/L (3-35); SGPT/ALT 36 U/L (12-78); SODIUM 138 mmol/L (136-145); TOTAL PROTEIN 8.2 gm/dL (6.4-8.2)
[2020-08-23] MEDS ORDERED: SEROQUEL XR200 MG PO (14:57)
[2020-08-23] MEDS ORDERED: Depakote500 MG PO (14:57)
[2020-08-23] MEDS ORDERED: ZANAFLEX4 M2 PO (14:58)
[2020-08-23] MEDS ORDERED: VISTARIL25 MG PO (14:59)
[2020-08-23] MEDS ORDERED: 'CLONIDINE0.1 MG PO (15:01)
[2020-08-23 15:20] LABS: BILIRUBIN Negative (Negative); BLOOD Negative (Negative); CLARITY Clear (Clear); COLOR Yellow (Yellow); GLUCOSE Trace (Negative); KETONE 2+ (Negative); LEUKO ESTERASE Negative (Negative); NITRITE Negative (Negative); PH 6.5 (4.5-8.0)
[2020-08-23 15:26] LABS: URINE AMPHETAMINES < 1000 (1000ng/ml); URINE BARBITURATES > 200 (200ng/ml); URINE BENZODIAZEPINES < 200 (200ng/ml); URINE CANNABINOIDS (THC) > 50 (50ng/ml); URINE COCAINE > 300 (300ng/ml); URINE METHADONE < 300 (300ng/ml); URINE OPIATES > 300 (300ng/ml)
[2020-08-23 15:32] LABS: BACTERIA TRACE; EPITHELIAL CELLS 31-40
[2020-08-23 15:33] LABS: URINE PHENCYCLIDINE < 25 (25ng/ml)
[2020-08-23 16:00] VITALS: BP 198/114
[2020-08-23 20:00] VITALS: BP 183/99
[2020-08-23 22:00] VITALS: BP 180/76
[2020-08-24] VITALS: BP 158/94
[2020-08-24 08:00] VITALS: BP 180/98
[2020-08-24 12:00] VITALS: BP 184/100
[2020-08-24 16:00] VITALS: BP 178/103
[2020-08-24 20:00] VITALS: BP 178/100
[2020-08-25] VITALS: BP 167/100
[2020-08-25 08:00] VITALS: BP 168/100
[2020-08-25 12:00] VITALS: BP 156/104
[2020-08-25 12:50] VITALS: BP 160/100
[2020-08-25 16:00] VITALS: BP 153/93
[2020-08-25 20:35] VITALS: BP 129/89
[2020-08-26] VITALS: BP 147/58
[2020-08-26 08:00] VITALS: BP 136/69
[2020-08-26] MEDS ORDERED: ROPINIROLE HYD0.5 MG PO (11:41)
[2020-08-26] MEDS ORDERED: DICYCLOMINE HCL20 MG PO (11:41)
[2020-08-26] MEDS ORDERED: ZOFRAN4 MG PO (11:42)
[2020-08-26 12:00] VITALS: BP 143/97
== END 2020-08-26 14:51 | disposition home or self-care (01) | DRG 896 ==
LOC: 4E 12:15
PROVIDERS: Student in an Organized Health Care Education/Training Program; ADMIT Internal Medicine; ATTEND Internal Medicine
DX: F11.23 Opioid dependence with withdrawal (principal); N17.0 Acute kidney failure with tubular necrosis; F19.10 Other psychoactive substance abuse, uncomplicated; F14.10 Cocaine abuse, uncomplicated; M79.7 Fibromyalgia; R81 Glycosuria; I12.9 Hypertensive chronic kidney disease with stage 1 through stage 4 chronic kidney disease, or unspecified chronic kidney disease; E11.22 Type 2 diabetes mellitus with diabetic chronic kidney disease; N18.31 Chronic kidney disease, stage 3a; F32.5 Major depressive disorder, single episode, in full remission; K58.9 Irritable bowel syndrome, unspecified; Z96.641 Presence of right artificial hip joint; E11.42 Type 2 diabetes mellitus with diabetic polyneuropathy; F17.210 Nicotine dependence, cigarettes, uncomplicated; K21.9 Gastro-esophageal reflux disease without esophagitis; E11.65 Type 2 diabetes mellitus with hyperglycemia; E55.9 Vitamin D deficiency, unspecified; E78.1 Pure hyperglyceridemia; F41.9 Anxiety disorder, unspecified; Z71.6 Tobacco abuse counseling; Z90.710 Acquired absence of both cervix and uterus; Z90.49 Acquired absence of other specified parts of digestive tract; Z88.5 Allergy status to narcotic agent; Z79.899 Other long term (current) drug therapy

== ENCOUNTER 2021-04-11 09:07 | Inpatient (IN) | payer OTHER, MEDICAID ==
[~2021-04-11] VITALS: Ht 170.2 cm; Wt 89.8 kg
[~2021-04-11 09:07] MED LIST changes: +'CLONIDINE0.1 MG PO; +Depakote500 MG PO; +SEROQUEL XR200 MG PO; +VISTARIL25 MG PO; +ZANAFLEX4 M2 PO; +ZOFRAN4 MG PO
[2021-04-11 09:15] VITALS: BP 174/98
[2021-04-11 11:47] LABS: BASO % 0.6 % (0.0-1.0); EOS # 0.2 10*3/uL (0.0-0.4); EOS % 2.9 % (1.0-4.0); HEMATOCRIT 41.8 % (37.0-47.0); LYMPH # 2.8 10*3/uL (1.3-4.4); LYMPH % 44.7 % (27.0-41.0); MEAN CELL VOLUME 86.9 fl (81.0-99.0); MEAN CORPUSCULAR HGB 28.9 pg (27.0-31.0); MEAN CORPUSCULAR HGB CONC 33.3 g/dl (33.0-37.0); MEAN PLATELET VOLUME 9.3 fl (9.6-12.3); MONO # 0.4 10*3/uL (0.1-1.0); MONO % 6.6 % (3.0-9.0); NEUT # 2.8 10*3/uL (2.3-7.9); PLATELET COUNT AUTOMATED 169 10*3/uL (130-400); RED BLOOD COUNT 4.81 10*6/uL (4.10-5.10); RED CELL DISTRI WIDTH 13.2 % (0-14.5); WHITE BLOOD COUNT 6.2 10*3/uL (4.8-10.8)
[2021-04-11 12:03] LABS: ALBUMIN 3.8 gm/dl (3.1-4.5); CREATININE 1.26 mg/dL (0.55-1.02); POTASSIUM 4.1 mmol/L (3.5-5.1); TOTAL PROTEIN 7.5 gm/dL (6.4-8.2)
[2021-04-11 12:11] LABS: BILIRUBIN Negative (Negative); BLOOD Negative (Negative); CLARITY Clear (Clear); COLOR Yellow (Yellow); GLUCOSE Negative (Negative); KETONE Negative (Negative); LEUKO ESTERASE 2+ (Negative); NITRITE Positive (Negative); SPECIFIC GRAVITY 1.015 (1.001-1.030)
[2021-04-11 12:22] LABS: URINE BARBITURATES < 200 (200ng/ml); URINE BENZODIAZEPINES < 200 (200ng/ml); URINE CANNABINOIDS (THC) < 50 (50ng/ml); URINE COCAINE < 300 (300ng/ml); URINE METHADONE < 300 (300ng/ml); URINE OPIATES < 300 (300ng/ml)
[2021-04-11 12:26] LABS: URINE AMPHETAMINES > 1000 (1000ng/ml)
[2021-04-11 12:27] LABS: URINE PHENCYCLIDINE < 25 (25ng/ml)
[2021-04-11 12:37] LABS: BACTERIA 2+; WBC TNTC wbc/hpf (0-5)
[2021-04-11 17:29] VITALS: BP 142/89
[2021-04-11 20:45] VITALS: BP 173/98
[2021-04-11 20:54] VITALS: BP 167/92
[2021-04-11 23:30] VITALS: BP 132/75
[2021-04-12] VITALS (7 sets, daily range): BP systolic 135–217; BP diastolic 60–110
[2021-04-12 06:35] LABS: BASO % 0.6 % (0.0-1.0); EOS # 0.2 10*3/uL (0.0-0.4); EOS % 2.7 % (1.0-4.0); LYMPH % 46.2 % (27.0-41.0); MEAN CELL VOLUME 87.5 fl (81.0-99.0); MEAN CORPUSCULAR HGB 28.8 pg (27.0-31.0); MEAN PLATELET VOLUME 9.2 fl (9.6-12.3); MONO # 0.4 10*3/uL (0.1-1.0); MONO % 6.7 % (3.0-9.0); NEUT # 2.8 10*3/uL (2.3-7.9); NEUT % 43.6 % (47.0-73.0); PLATELET COUNT AUTOMATED 175 10*3/uL (130-400); RED BLOOD COUNT 5.03 10*6/uL (4.10-5.10); RED CELL DISTRI WIDTH 13.2 % (0-14.5); WHITE BLOOD COUNT 6.4 10*3/uL (4.8-10.8)
[2021-04-12 06:55] LABS: ALBUMIN 3.3 gm/dl (3.1-4.5); POTASSIUM 4.2 mmol/L (3.5-5.1)
[2021-04-12 07:00] LABS: CREATININE 1.2 mg/dL (0.55-1.02); TOTAL PROTEIN 7.5 gm/dL (6.4-8.2)
[2021-04-13] VITALS (9 sets, daily range): BP systolic 168–215; BP diastolic 80–117
[2021-04-13 11:33] LABS: BASO % 0.2 % (0.0-1.0); HEMATOCRIT 44.7 % (37.0-47.0); LYMPH # 1.8 10*3/uL (1.3-4.4); LYMPH % 20.8 % (27.0-41.0); MEAN CORPUSCULAR HGB 28.8 pg (27.0-31.0); MEAN CORPUSCULAR HGB CONC 34.5 g/dl (33.0-37.0); MEAN PLATELET VOLUME 9.3 fl (9.6-12.3); MONO # 0.4 10*3/uL (0.1-1.0); MONO % 4.1 % (3.0-9.0); NEUT # 6.3 10*3/uL (2.3-7.9); NEUT % 74.5 % (47.0-73.0); PLATELET COUNT AUTOMATED 188 10*3/uL (130-400); RED BLOOD COUNT 5.34 10*6/uL (4.10-5.10); RED CELL DISTRI WIDTH 12.9 % (0-14.5); WHITE BLOOD COUNT 8.5 10*3/uL (4.8-10.8)
[2021-04-13 11:43] LABS: CREATININE 1.35 mg/dL (0.55-1.02); MEAN CELL VOLUME 83.7 fl (81.0-99.0); POTASSIUM 4.1 mmol/L (3.5-5.1)
[2021-04-14] VITALS (10 sets, daily range): BP systolic 125–180; BP diastolic 80–109
[2021-04-14 07:22] LABS: BASO % 0.3 % (0.0-1.0); CREATININE 1.19 mg/dL (0.55-1.02); EOS % 0.1 % (1.0-4.0); LYMPH # 3.2 10*3/uL (1.3-4.4); LYMPH % 33.3 % (27.0-41.0); MEAN CELL VOLUME 82.9 fl (81.0-99.0); MEAN CORPUSCULAR HGB 28.8 pg (27.0-31.0); MEAN CORPUSCULAR HGB CONC 34.8 g/dl (33.0-37.0); MEAN PLATELET VOLUME 9.2 fl (9.6-12.3); MONO # 0.5 10*3/uL (0.1-1.0); NEUT # 5.8 10*3/uL (2.3-7.9); NEUT % 60.8 % (47.0-73.0); PLATELET COUNT AUTOMATED 207 10*3/uL (130-400); POTASSIUM 3.8 mmol/L (3.5-5.1); RED BLOOD COUNT 5.31 10*6/uL (4.10-5.10); RED CELL DISTRI WIDTH 12.9 % (0-14.5); WHITE BLOOD COUNT 9.6 10*3/uL (4.8-10.8)
[2021-04-15] VITALS: BP 97/53
[2021-04-15 06:11] LABS: BASO # 0.1 10*3/uL (0.0-0.1); BASO % 0.7 % (0.0-1.0); EOS # 0.1 10*3/uL (0.0-0.4); EOS % 0.9 % (1.0-4.0); LYMPH # 4.1 10*3/uL (1.3-4.4); LYMPH % 47.5 % (27.0-41.0); MEAN CELL VOLUME 84.8 fl (81.0-99.0); MEAN CORPUSCULAR HGB 28.7 pg (27.0-31.0); MEAN CORPUSCULAR HGB CONC 33.8 g/dl (33.0-37.0); MEAN PLATELET VOLUME 9.1 fl (9.6-12.3); MONO # 0.6 10*3/uL (0.1-1.0); MONO % 6.4 % (3.0-9.0); NEUT # 3.8 10*3/uL (2.3-7.9); NEUT % 43.9 % (47.0-73.0); PLATELET COUNT AUTOMATED 194 10*3/uL (130-400); WHITE BLOOD COUNT 8.6 10*3/uL (4.8-10.8)
[2021-04-15 06:16] LABS: CREATININE 1.4 mg/dL (0.55-1.02); POTASSIUM 3.8 mmol/L (3.5-5.1)
[2021-04-15 07:47] VITALS: BP 120/80
[2021-04-15 08:00] VITALS: BP 114/62
[2021-04-15 12:00] VITALS: BP 139/79
[2021-04-15 16:00] VITALS: BP 122/65
[2021-04-15 20:10] VITALS: BP 144/85
[2021-04-16 00:06] VITALS: BP 129/57
[2021-04-16 06:41] LABS: CREATININE 1.33 mg/dL (0.55-1.02); POTASSIUM 4.7 mmol/L (3.5-5.1)
[2021-04-16 06:57] LABS: BASO # 0.1 10*3/uL (0.0-0.1); BASO % 0.6 % (0.0-1.0); EOS # 0.2 10*3/uL (0.0-0.4); EOS % 2.1 % (1.0-4.0); HEMATOCRIT 44.5 % (37.0-47.0); LYMPH # 2.1 10*3/uL (1.3-4.4); LYMPH % 27.1 % (27.0-41.0); MEAN CELL VOLUME 84.3 fl (81.0-99.0); MEAN CORPUSCULAR HGB CONC 34.4 g/dl (33.0-37.0); MEAN PLATELET VOLUME 9.5 fl (9.6-12.3); MONO # 0.6 10*3/uL (0.1-1.0); MONO % 7.8 % (3.0-9.0); NEUT # 4.8 10*3/uL (2.3-7.9); NEUT % 61.9 % (47.0-73.0); PLATELET COUNT AUTOMATED 180 10*3/uL (130-400); RED BLOOD COUNT 5.28 10*6/uL (4.10-5.10); WHITE BLOOD COUNT 7.8 10*3/uL (4.8-10.8)
[2021-04-16 08:00] VITALS: BP 182/98
[2021-04-16 11:23] VITALS: BP 142/90
[2021-04-16 12:07] VITALS: BP 126/88
[2021-04-16] MEDS ORDERED: AMLODIPINE BESYL5 MG PO (12:48)
[2021-04-16] MEDS ORDERED: 'CLONIDINE0.1 MG PO (12:48)
[2021-04-16] MEDS ORDERED: LIPITOR40 MG PO (12:48)
[2021-04-16] MEDS ORDERED: ROPINIROLE HYD0.5 MG PO (12:48)
[2021-04-16] MEDS ORDERED: ZOFRAN4 MG PO (12:48)
[2021-04-16] MEDS ORDERED: LISINOPRIL40 MG PO (12:48)
[2021-04-16] MEDS ORDERED: VISTARIL25 MG PO (12:48)
[2021-04-16] MEDS ORDERED: CYCLOBENZAPRINE10 MG PO (12:49)
== END 2021-04-16 13:26 | disposition home or self-care (01) | DRG 896 ==
LOC: ED 09:07 → EDHOLD 11:56 → 5E 11:56 → EDHOLD 12:04 → 5E 18:15
PROVIDERS: Family Medicine; Internal Medicine; Nurse Practitioner Family; Registered Nurse; ADMIT Internal Medicine; ATTEND Internal Medicine
DX: F11.23 Opioid dependence with withdrawal (principal); N17.0 Acute kidney failure with tubular necrosis; N30.00 Acute cystitis without hematuria; I16.1 Hypertensive emergency; Z16.12 Extended spectrum beta lactamase (ESBL) resistance; M06.9 Rheumatoid arthritis, unspecified; M79.7 Fibromyalgia; G62.9 Polyneuropathy, unspecified; I10 Essential (primary) hypertension; E11.65 Type 2 diabetes mellitus with hyperglycemia; E11.22 Type 2 diabetes mellitus with diabetic chronic kidney disease; N18.31 Chronic kidney disease, stage 3a; E78.5 Hyperlipidemia, unspecified; F17.210 Nicotine dependence, cigarettes, uncomplicated; B96.20 Unspecified Escherichia coli [E. coli] as the cause of diseases classified elsewhere; Z90.49 Acquired absence of other specified parts of digestive tract; Z90.710 Acquired absence of both cervix and uterus; Z98.891 History of uterine scar from previous surgery; Z68.31 Body mass index [BMI] 31.0-31.9, adult